=== PATIENT | male | born 1965 | race Caucasian/White ===

== ENCOUNTER 2023-12-06 11:33 | Outpatient (CLI) | payer MEDICARE, MEDICAID | END 2023-12-06 23:59 | disposition home or self-care (01) | LOC: RAD 11:33 | PROVIDERS: ATTEND Nurse Practitioner Family | DX: M25.761 Osteophyte, right knee (principal); M25.561 Pain in right knee; M11.261 Other chondrocalcinosis, right knee; M77.9 Enthesopathy, unspecified | CPT/HCPCS: 73564 ==